=== PATIENT | male | born 1980 | race Caucasian/White ===

== ENCOUNTER 2018-06-26 16:49 | Emergency (ER) | payer BC ==
--- NOTE | 2018-06-26 17:22 | EDM.PDOC ---
ED HPI GENERAL MEDICAL PROBLEM - General Chief Complaint: Gastrointestinal Problem Stated Complaint: VOMITING Time Seen by Provider: 06/26/18 17:30 Source of Information: Reports: Patient, RN Notes Reviewed History Limitations: Reports: No Limitations - History of Present Illness INITIAL COMMENTS - FREE TEXT/NARRATIVE: Today we have a pleasant 38yoM who presents to the ED for evaluation and treatment of some vomiting episodes, and stomach pain. The patient reports having went out drinking last night, at this time he consumed 10 vodka drinks. He stopped drinking alcohol around 10pm last night. He then went to bed and awoke at around 2-3 AM and started vomiting. He states that he had around 8-10 episodes of vomiting. He did notice a feeling of burning in his upper abdomen after these episodes. He stated that he also had some dry heaving later in the morning after he woke up for the day. He did present to the [facility] and they felt that he needed further evaluation. It was at this time that he took some Pepto Bismol and he stated that this made the burning/stomach pain feel better. He also states that he has not eaten or drank much for fluids today. He also states that he is on the "keto" diet, but does not report any symptoms or complications from this. He denies any fever/chills, chest pain, SOB, dizziness/ lightheadedness. Location: Reports: Abdomen Quality: Reports: Ache, Burning, Dull Severity: Mild Associated Symptoms: Reports: Nausea/Vomiting. Denies: Weakness epigastic Pain Score (Numeric/FACES): 6 - Related Data Allergies Allergy/AdvReac Type Severity Reaction Status Date / Time No Known Allergies Allergy Verified 06/26/18 17:06 Home Meds: Home Meds Dextroamphetamine/Amphetamine [Dextroamp-Amphetamin 10 mg Tab] 10 mg PO DAILY [History] Famotidine [Pepcid AC] 20 mg PO BID 10 Days #20 tablet 06/26/18 [Rx] Past Medical History - Past Health History Medical/Surgical History: Denies Medical/Surgical History Psychiatric History: Reports: ADHD Social & Family History - Family History Family Medical History: Noncontributory - Tobacco Use Smoking Status *Q: Never Smoker - Caffeine Use Caffeine Use: Reports: Coffee - Alcohol Use Alcohol Use History: Yes Alcohol Use Frequency: Daily - Recreational Drug Use Recreational Drug Use: No ED ROS GENERAL - Review of Systems Review Of Systems: ROS reveals no pertinent complaints other than HPI. ED EXAM, GI/ABD - Physical Exam Exam: See Below Exam Limited By: No Limitations General Appearance: Alert, WD/WN, No Apparent Distress Eyes: Bilateral: Normal Appearance Throat/Mouth: Normal Inspection, Normal Lips, Normal Teeth, Normal Gums, Normal Oropharynx, Normal Voice, No Airway Compromise Respiratory/Chest: No Respiratory Distress, Lungs Clear, Normal Breath Sounds, No Accessory Muscle Use, Chest Non-Tender Cardiovascular: Normal Peripheral Pulses, Regular Rate, Rhythm GI/Abdominal Exam: Normal Bowel Sounds, Soft, No Organomegaly, No Distention, No Abnormal Bruit, No Mass, Tender (located mainly in the epigastric area). No : Guarding, Rigid Extremities: Normal Inspection, Normal Range of Motion, Non-Tender, Normal Capillary Refill, No Pedal Edema Neurological: Alert, Oriented, Normal Cognition Psychiatric: Normal Affect, Normal Mood Skin Exam: Warm, Dry, Intact, Normal Color, No Rash Lymphatic: No Adenopathy Course - Vital Signs Last Recorded V/S: Last Vital Signs Temp 37.2 C 06/26/18 17:01 Pulse 122 H 06/26/18 17:01 Resp 18 06/26/18 17:01 BP 148/72 H 06/26/18 17:01 Pulse Ox 97 06/26/18 17:01 - Orders/Labs/Meds Orders: Active Orders 24 hr Category Date Time Status Abdomen Pelvis wo Cont [CT] Stat Exams 06/26/18 17:29 Taken Labs: Laboratory Tests 06/26/18 06/26/18 06/26/18 Range/Units 17:29 17:35 17:45 WBC 20.82 H (4.23-9.07) K/mm3 RBC 5.66 (4.63-6.08) M/mm3 Hgb 17.5 (13.7-17.5) gm/L Hct 51.9 H (40.1-51.0) % MCV 91.7 (79.0-92.2) fl MCH 30.9 (25.7-32.2) pg MCHC 33.7 (32.2-35.5) g/dl RDW Std Deviation 45.6 H (35.1-43.9) fL Plt Count 256 (163-337) K/mm3 MPV 9.5 (9.4-12.3) fl Neut % (Auto) 83.7 H (34.0-67.9) % Lymph % (Auto) 8.5 L (21.8-53.1) % [place] % (Auto) 7.3 (5.3-12.2) % Eos % (Auto) 0.1 L (0.8-7.0) Baso % (Auto) 0.2 (0.1-1.2) % Neut # (Auto) 17.39 H (1.78-5.38) K/mm3 Lymph # (Auto) 1.78 (1.32-3.57) K/mm3 [place] # (Auto) 1.52 H (0.30-0.82) K/mm3 Eos # (Auto) 0.03 L (0.04-0.54) K/mm3 Baso # (Auto) 0.05 (0.01-0.08) K/mm3 Manual Slide Review Abnormal smear Sodium 137 (136-145) mEq/L Potassium 4.6 (3.5-5.1) mEq/L Chloride 98 (98-107) mEq/L Carbon Dioxide 23 (21-32) mEq/L Anion Gap 20.6 H (5-15) BUN 15 (7-18) mg/dL Creatinine 1.3 (0.7-1.3) mg/dL Est Cr Clr Drug Dosing 76.29 mL/min Estimated GFR (MDRD) > 60 (>60) mL/min BUN/Creatinine Ratio 11.5 L (14-18) Glucose 72 L (74-106) mg/dL Calcium 9.4 (8.5-10.1) mg/dL Total Bilirubin 1.4 H (0.2-1.0) mg/dL AST 29 (15-37) U/L ALT 33 (16-63) U/L Alkaline Phosphatase 52 (46-116) U/L Total Protein 8.0 (6.4-8.2) g/dl Albumin 3.9 (3.4-5.0) g/dl Globulin 4.1 gm/dL Albumin/Globulin Ratio 1.0 (1-2) Lipase 235 (73-393) U/L Urine Color Yellow (Yellow) Urine Appearance Clear (Clear) Urine pH 6.0 (5.0-8.0) Ur Specific [place] > or = 1.030 (1.005-1.030) Urine Protein 1+ H (Negative) Urine Glucose (UA) Negative (Negative) Urine Ketones 3+ H (Negative) Urine Occult Blood Trace-lysed H (Negative) Urine Nitrite Negative (Negative) Urine Bilirubin 1+ H (Negative) Urine Urobilinogen 0.2 (0.2-1.0) Ur Leukocyte Esterase Negative (Negative) Urine RBC 0-5 (0-5) /hpf Urine WBC 5-10 H (0-5) /hpf Ur Epithelial Cells 0-5 (0-5) /hpf Urine Bacteria Few (FEW) /hpf Urine Mucus Not seen (FEW) /hpf Meds: Medications Discontinued Medications Generic Name Dose Route Start Last Admin Trade Name Freq PRN Reason Stop Dose Admin Al Hydroxide/Mg Hydroxide 30 0 ml 06/26/18 18:43 06/26/18 18:47 ml/ Lidocaine HCl 15 ml PO 06/26/18 18:44 45 ml ONETIME ONE Administration Sodium Chloride 1,000 mls @ 999 mls/hr 06/26/18 17:29 06/26/18 17:42 Normal Saline IV 06/26/18 18:29 999 mls/hr ONETIME ONE Administration Sodium Chloride 1,000 mls @ 999 mls/hr 06/26/18 18:42 06/26/18 18:46 Normal Saline IV 06/26/18 19:42 999 mls/hr ONETIME ONE Administration Ondansetron HCl 4 mg 06/26/18 17:29 06/26/18 17:42 Zofran IVPUSH 06/26/18 17:30 4 mg ONETIME ONE Administration Pantoprazole Sodium 40 mg 06/26/18 17:56 06/26/18 18:05 Protonix Iv IVPUSH 06/26/18 17:57 40 mg ONETIME ONE Administration - Re-Assessments/Exams Free Text/Narrative Re-Assessment/Exam: 06/26/18 18:40 At this time patient reevaluated at bedtime. Patient still complains of mild discomfort in epigastric region. At this time ordered GI cocktail. Abdomen mildly tenderness to palpation over epigastric and right upper quadrant. Denies any nausea at this time. 06/26/18 20:01 At this time patient reevaluated at bedside. Patient denies any abdominal pain and nausea at this time. He stated that he felt much better after use of GI cocktail and 2 L of intravenous normal saline boluses. Abdominal exam: Nontender to palpation over all [address] At this time[address] CT scan of the abdomen and pelvis came back negative for any acute intra-abdominal pathology. I explained the results of the CT scan to the patient. And highly advised to return to the emergency department for evaluation of abdominal pain within 8-12 hours, if Pain is persisted. Also advised to return the emergency Department if he developed new symptoms including vomiting up blood, diarrhea, fever greater than 100.4F, persistent vomiting, headache, chest pain or shortness of breath. He verbalizes understanding of the given instruction and agrees to comply. Departure - Departure Time of Disposition: 20:05 Disposition: Home, Self-Care 01 Condition: Good Clinical Impression: Epigastric abdominal pain, Vomiting, Alcoholic gastritis - Discharge Information Prescriptions: Famotidine [Pepcid AC] 20 mg PO BID 10 Days #20 tablet Instructions: Dehydration, Adult, [id number], Nausea and Vomiting, Adult, Gastritis, Adult, [id number] Referrals: PCP,None [Primary Care Provider] - 2 Days (Please establish care with primary care provider or call your PCP of choice to reevaluate of today emergency visit) Forms: ED Department Discharge - My Orders Last 24 Hours: My Active Orders 06/26/18 17:29 Abdomen Pelvis wo Cont [CT] Stat - Assessment/Plan Last 24 Hours: My Active Orders 06/26/18 17:29 Abdomen Pelvis wo Cont [CT] Stat
[2018-06-26] MEDS ORDERED: Sodium Chloride 0.9% 1,000 ML IV ONE ×2 (17:29→18:42)
[2018-06-26] MEDS ORDERED: Ondansetron 4 MG/2 ML SDV IVPUSH ONE (17:29)
[2018-06-26] MEDS ORDERED: Pantoprazole 40 MG Vial IVPUSH ONE (17:56)
[2018-06-26] MEDS ORDERED: Alum Hydrox/Mag Hydrox/Simeth 30 ML, Lidocaine 2% 15 ML PO ONE ×2 (18:43)
--- NOTE | 2018-06-27 09:32 | CT ---
CT abdomen and pelvis Technique: Multiple axial sections were obtained from above the dome of the diaphragm inferiorly through the pubic symphysis. Intravenous and oral contrast was not utilized. Lack of contrast limits details of bowel and solid organs. Findings: Visualized lung bases show nothing acute. Liver shows no focal parenchymal abnormality. Small hiatal hernia is noted. Spleen appears within normal limits. Adrenal glands show no nodule. Gallbladder contains no calcified gallstones. Pancreas is within normal limits. Aorta shows no aneurysm. Kidneys show no hydronephrosis. No discrete mass is identified. No renal calculi are seen. No retroperitoneal adenopathy is seen. Appendix is seen which is normal in size. No pelvic mass or adenopathy is seen. Calcifications are noted within the prostate gland. No free fluid or inflammatory change is seen within the abdomen or pelvis. No ureteral dilatation or ureteral stone is seen. Impression: 1. Incidental findings as noted above. Nothing acute seen on noncontrast CT study of the abdomen and pelvis. Diagnostic code #2 I agree with preliminary report issued by [facility] ([facility] report finalized on 06/26/18, 8:05 PM Central Time)
== END 2018-06-26 20:14 | disposition home or self-care (01) ==
LOC: JD.ED 16:49
DX: K29.20 Alcoholic gastritis without bleeding (principal); Z79.899 Other long term (current) drug therapy
CPT/HCPCS: 36415; 74176; 74176-26; 80053; 81001; 83690; 85025; 96361; 96374; 96375; 99284; 99284-25; A9270-GY; C9113; J2405; J7040